=== PATIENT | female | born 1950 | race Caucasian/White ===

== ENCOUNTER 2024-04-10 13:15 | Emergency (ER) | payer MEDICARE, MEDICAID ==
[~2024-04-10] VITALS: Ht 162.6 cm; Wt 75.0 kg
[2024-04-10 13:18] VITALS: BP 149/67; PULSE 67; RESP 16; TEMP 36.9; O2SAT 98
[2024-04-10] MEDS: ACETAMINOPHEN 325MG TABLET PO ONE (15:50)
[2024-04-10] MEDS: TETANUS, DIPHTHERIA, PERTUSSIS VAC/PF 0.5ML (>10YR OLD) IM ONE (16:12)
== END 2024-04-10 16:29 | disposition home or self-care (01) ==
LOC: ER 13:15
DX: S00.03XA Contusion of scalp, initial encounter (principal); G89.11 Acute pain due to trauma; E11.9 Type 2 diabetes mellitus without complications; I10 Essential (primary) hypertension; W22.8XXA Striking against or struck by other objects, initial encounter; Y93.89 Activity, other specified; Y92.512 Supermarket, store or market as the place of occurrence of the external cause; Y99.8 Other external cause status
CPT/HCPCS: 99284